=== PATIENT | female | born 1990 | race American Indian/Alaskan Native ===

== ENCOUNTER 2019-07-01 15:58 | Emergency (ER) | payer SELFPAY ==
--- NOTE | 2019-07-01 16:09 | Event Note ---
ED Screening Note Date of service: 07/01/19 Time: 16:07 ED Screening Note: 29 y o presents with stray dog bite today to arms This initial assessment/diagnostic orders/clinical plan/treatment(s) is/are subject to change based on patients health status, clinical progression and re- assessment by fellow clinical providers in the ED. Further treatment and workup at subsequent clinical providers discretion. Patient/guardian urged not to elope from the ED as their condition may be serious if not clinically assessed and managed. Initial orders include: tet boostris aug
[2019-07-01] MEDS ORDERED: PERCOCET 5/325 PO ONE (19:19)
[2019-07-01] MEDS ORDERED: RABAVERT RABIES VACCINE(PCEC) IM ONE (20:00)
--- NOTE | 2019-07-01 22:02 | XRay Report ---
RIGHT HAND 2 VIEWS INDICATION / CLINICAL INFORMATION: dog bite rt hand. COMPARISON: None available. FINDINGS: No significant skeletal abnormality. Signer Name: Abran Ng MD FACDarryl Signed: 07/01/2019 9:58 PM Workstation Name: [facility]
--- NOTE | 2019-07-01 22:02 | XRay Report ---
LEFT FOREARM 2 VIEWS INDICATION / CLINICAL INFORMATION: dog bite tp left forearm. COMPARISON: None available. FINDINGS: No significant skeletal abnormality. Signer Name: Abran Ng MD FACDarryl Signed: 07/01/2019 9:57 PM Workstation Name: [id number]
--- NOTE | 2019-07-01 22:03 | XRay Report ---
RIGHT TIBIA AND FIBULA 2 VIEWS INDICATION / CLINICAL INFORMATION: dog bite to left lower leg. COMPARISON: None available. FINDINGS: No significant skeletal abnormality. Signer Name: Abran Ng MD FACDarryl Signed: 07/01/2019 9:58 PM Workstation Name: [id number]
--- NOTE | 2019-07-01 22:13 | Emergency Department Report ---
ED Animal Bite HPI - General Chief Complaint: Animal Bite Stated Complaint: LFT LEG/LFT HAND DOG BITE/PAIN Time Seen by Provider: 07/01/19 16:05 Source: patient Mode of arrival: Ambulatory Limitations: No Limitations - History of Present Illness Initial Comments: 29 year old -[place] female comes to the emergency room for dog bite to her left forearm right hand right leg and has road rash and abrasions due to the fall while running from the dog. Patient reports that the dog was a stray and ran away. Patient has no past medical history currently takes no medications on a daily basis and has no known drug allergies. MD Complaint: animal bite -: This afternoon Left: Leg, Right: Hand Animal: dog Animal Control Notified: Yes Description: unknown animal Mechanism: bite Pain Description: sharp, burning, constant Severity scale (0 -10): 10 Context: unprovoked Associated Symptoms: erythema, bleeding - Related Data Previous Rx's Medication Instructions Recorded Last Taken Type Amoxicillin/K Clav Tab [Augmentin 1 tab PO Q12HR 10 Days #20 tab 07/01/19 Unknown Rx 875 mg] HYDROcodone/APAP 5-325 [[place] 1 each PO Q6HR PRN #12 tablet 07/01/19 Unknown Rx 5/325] Ibuprofen [Motrin 800 MG tab] 800 mg PO Q8HR PRN #30 tablet 07/01/19 Unknown Rx Allergies Allergy/AdvReac Type Severity Reaction Status Date / Time No Known Allergies Allergy Unverified 07/01/19 15:59 ED Review of Systems ROS: Stated complaint: LFT LEG/LFT HAND DOG BITE/PAIN Other details as noted in HPI Comment: All other systems reviewed and negative ED Past Medical Hx - Past Medical History Previous Medical History?: No - Surgical History Past Surgical History?: No - Social History Smoking Status: Current Every Day Smoker Substance Use Type: Alcohol, Marijuana - Medications Home Medications: Home Medications Medication Instructions Recorded Confirmed Last Taken Type Amoxicillin/K Clav Tab [Augmentin 1 tab PO Q12HR 10 Days #20 tab 07/01/19 Unknown Rx 875 mg] HYDROcodone/APAP 5-325 [[place] 1 each PO Q6HR PRN #12 tablet 07/01/19 Unknown Rx 5/325] Ibuprofen [Motrin 800 MG tab] 800 mg PO Q8HR PRN #30 tablet 07/01/19 Unknown Rx ED Physical Exam - General Limitations: No Limitations General appearance: alert, in no apparent distress - Head Head exam: Present: atraumatic, normocephalic - Eye Eye exam: Present: normal appearance - ENT ENT exam: Present: mucous membranes moist - Neurological Exam Neurological exam: Present: alert, oriented X3, CN II-XII intact, normal gait - Psychiatric Psychiatric exam: Present: normal affect, normal mood - Skin Skin exam: Present: warm, dry, intact, normal color. Absent: rash ED Course Vital Signs 07/01/19 16:00 Temperature 98.9 F Pulse Rate 103 H Respiratory 18 Rate Blood Pressure 132/93 O2 Sat by Pulse 100 Oximetry Critical care attestation.: If time is entered above; I have spent that time in minutes in the direct care of this critically ill patient, excluding procedure time. ED Disposition Clinical Impression: Dog bite of extremity Dog bite of forearm Qualifiers: Encounter type: initial encounter Laterality: left Qualified Code(s): S51.852A - Open bite of left forearm, initial encounter; W54.0XXA - Bitten by dog, initial encounter Dog bite of hand Qualifiers: Encounter type: initial encounter Laterality: right Qualified Code(s): S61.451A - Open bite of right hand, initial encounter; W54.0XXA - Bitten by dog, initial encounter Disposition: DC-01 TO HOME OR SELFCARE Is pt being admited?: No Does the pt Need Aspirin: No Condition: Stable Additional Instructions: Complete antibiotics as prescribed. Take pain medication as needed. You must follow up at either [facility] or [facility] to receive. Next rabies series. States that she needed to follow-up are as followed: Jul 03, 2019 Jul 08, 2019 Jul 15, 2019 Handout has been attach to your discharge paperwork. Prescriptions: Amoxicillin/K Clav Tab [Augmentin 875 mg] 1 tab PO Q12HR 10 Days #20 tab Ibuprofen [Motrin 800 MG tab] 800 mg PO Q8HR PRN #30 tablet PRN Reason: Pain , Severe (7-10) HYDROcodone/APAP 5-325 [[place] 5/325] 1 each PO Q6HR PRN #12 tablet PRN Reason: Pain Referrals: PRIMARY CARE,MD [Primary Care Provider] - 3-5 Days ED Medical Decision Making - Radiology Data Radiology results: report reviewed Patient: FRANCIA CORNELIUS MR#: [id number] : 1990 Acct:[id number] Age/Sex: 29 / F ADM Date: 07/01/19 Loc: ED Attending Dr: Ordering Physician: SHARI ROBLES Date of Service: 07/01/19 Procedure(s): XR tibia fibula 2V RT Accession Number(s): [id number] cc: SHARI ROBLES Fluoro Time In Minutes: RIGHT TIBIA AND FIBULA 2 VIEWS INDICATION / CLINICAL INFORMATION: dog bite to left lower leg. COMPARISON: None available. FINDINGS: No significant skeletal abnormality. Signer Name: Abran Ng MD FACR Signed: 07/01/2019 9:58 PM Workstation Name: [id number] Transcribed By: MS Dictated By: Abran Ng MD Electronically Authenticated By: Abran Ng MD Signed Date/Time: 07/01/192157 DD/ 57 TD/TT: Patient: FRANCIA CORNELIUS MR#: [id number] : 1990 Acct:[id number] Age/Sex: 29 / F ADM Date: 07/01/19 Loc: ED Attending Dr: Ordering Physician: SHARI ROBLES Date of Service: 07/01/19 Procedure(s): XR hand 2V RT Accession Number(s): [id number] cc: SHARI ROBLES Fluoro Time In Minutes: RIGHT HAND 2 VIEWS INDICATION / CLINICAL INFORMATION: dog bite rt hand. COMPARISON: None available. FINDINGS: No significant skeletal abnormality. Signer Name: Abran Ng MD FACR Signed: 07/01/2019 9:58 PM Workstation Name: [id number] Transcribed By: MS Dictated By: Abran Ng MD Electronically Authenticated By: Abran Ng MD Signed Date/Time: 07/01/192157 DD/ 56 TD/TT: - Medical Decision Making 29 year old -[place] female comes to the emergency room for dog bite to her left forearm right hand right leg and has road rash and abrasions due to the fall while running from the dog. Patient reports that the dog was a stray and ran away. Patient has no past medical history currently takes no medications on a daily basis and has no known drug allergies.
[2019-07-01] MEDS ORDERED: IBUPROFEN PO ONE (23:43)
[2019-07-02 00:04] VITALS: BP 140/88
== END 2019-07-02 00:04 | disposition home or self-care (01) ==
LOC: ED 15:58
DX: S51.852A Open bite of left forearm, initial encounter (principal); S61.451A Open bite of right hand, initial encounter; F17.200 Nicotine dependence, unspecified, uncomplicated; F12.10 Cannabis abuse, uncomplicated; W54.0XXA Bitten by dog, initial encounter; Y93.89 Activity, other specified; Y92.89 Other specified places as the place of occurrence of the external cause; Y99.8 Other external cause status
CPT/HCPCS: 90375; 90471; 90472; 90675; 96372